=== PATIENT | male | born 1940 | race Caucasian/White ===

== ENCOUNTER → 2016-09-29 | Outpatient (CLI) | payer OTHER ==
[~2016-09-29] MED LIST: MULTIPLE VITAMI1 CAP PO
== END | disposition home or self-care (01) ==
LOC: US 09-22 07:14
DX: Z13.6 Encounter for screening for cardiovascular disorders (principal); Z87.891 Personal history of nicotine dependence

== ENCOUNTER → 2023-08-07 | Outpatient (CLI) | payer MEDICARE, OTHER | END | disposition home or self-care (01) | LOC: ORTHO 07:18 | PROVIDERS: ATTEND Orthopaedic Surgery | DX: M16.12 Unilateral primary osteoarthritis, left hip (principal); M47.898 Other spondylosis, sacral and sacrococcygeal region ==

== ENCOUNTER → 2023-09-15 | Outpatient (CLI) | payer MEDICARE, OTHER | END | disposition home or self-care (01) | LOC: RAD 08-15 13:09 | PROVIDERS: ATTEND Orthopaedic Surgery | DX: Z13.820 Encounter for screening for osteoporosis (principal); M81.0 Age-related osteoporosis without current pathological fracture; I10 Essential (primary) hypertension; E55.9 Vitamin D deficiency, unspecified; Z87.891 Personal history of nicotine dependence ==

== ENCOUNTER → 2023-09-29 | Outpatient (CLI) | payer MEDICARE, OTHER | END | disposition home or self-care (01) | LOC: ORTHO 02:58 | PROVIDERS: ATTEND Orthopaedic Surgery | DX: M19.011 Primary osteoarthritis, right shoulder (principal); M81.8 Other osteoporosis without current pathological fracture; M25.511 Pain in right shoulder ==

== ENCOUNTER → 2023-12-01 | Outpatient (CLI) | payer MEDICARE, OTHER ==
[~2023-12-01] MED LIST changes: +ASPIRIN ADULT L81 M2 PO; +FLOMAX0.4 MG PO; +OXYCODONE-ACET1 EAC3 PO; +REMEDY CALAZIME4 GM T; +TAMSULOSIN HCL0.4 MG PO; +TERAZOSIN HCL5 M1 PO; +VIBRA-TAB100 MG PO; +VITAMIN D350 MCG PO
== END | disposition home or self-care (01) ==
LOC: ORTHO 01:17
PROVIDERS: ATTEND Orthopaedic Surgery
DX: M16.12 Unilateral primary osteoarthritis, left hip (principal); Z47.1 Aftercare following joint replacement surgery

== ENCOUNTER → 2023-12-29 | Outpatient (CLI) | payer MEDICARE, OTHER | END | disposition home or self-care (01) | LOC: ORTHO 02:10 | PROVIDERS: ATTEND Orthopaedic Surgery | DX: Z47.1 Aftercare following joint replacement surgery (principal); Z96.642 Presence of left artificial hip joint ==